=== PATIENT | female | born 1940 ===

== ENCOUNTER 2021-02-03 09:50 | Inpatient (IN) | payer MEDICARE, OTHER ==
[2021-02-03] VITALS (26 sets, daily range): BP systolic 76–192; BP diastolic 55–109
[~2021-02-03] VITALS: Ht 165 cm; Wt 82.4 kg
[2021-02-03] MEDS ORDERED: ANTACID SUSP 30 ML UDC (MYLANTA) PO PRN (13:00)
[2021-02-03] MEDS ORDERED: MELATONIN 3 MG TABLET PO PRN (13:00)
[2021-02-03] MEDS ORDERED: ACETAMINOPHEN 325 MG TABLET PO PRN (13:00)
[2021-02-03] MEDS ORDERED: polyethylene glycoL POWDER 17 GM (MIRALAX) PACK PO PRN (13:00)
[2021-02-03] MEDS ORDERED: ONDANSETRON 4 MG (ZOFRAN) ORAL DISSOLVE TAB PO PRN (13:00)
[2021-02-03] MEDS ORDERED: ONDANSETRON 4 MG/2 ML (SDV) Z0FRAN IV PRN (13:00)
--- NOTE | 2021-02-03 13:06 | Tele-ICU Consult ---
Progress Note 80 y/o female dmitte dwith 3rd degree heart block and CHF. Cardiology on consult for possible pacemaker Hemodynamically stable HR 42 BP 170/112 Focused Exam Height, Weight, BMI Height: '" Weight: lbs. oz. kg; 28.76 BMI Method: QAMAR LIU MD Feb 03, 2021 13:06
[2021-02-03] MEDS ORDERED: MIDAZOLAM 5 MG/5 ML (VERSED) VIAL ONE ×2 (13:13→19:31)
[2021-02-03] MEDS ORDERED: fentaNYL INJ 100 MCG/2 ML AMP ONE (13:13)
[2021-02-03] MEDS ORDERED: LIDOCAINE 1% INJ 20 ML 20 ML VIAL ONE ×2 (13:13→19:32)
[2021-02-03] MEDS ORDERED: HEParin (CATH LAB) 1,000 ML IV ONE (13:14)
[2021-02-03] MEDS ORDERED: NS IV 1000 ML 1,000 ML ONE (13:14)
[2021-02-03] MEDS ORDERED: NS (IVPB) 50 ML ONE (13:17)
[2021-02-03] MEDS ORDERED: ceFAZolin INJECTION 1,000 MG ONE (13:18)
[2021-02-03] MEDS ORDERED: NS IV 500 ML 500 ML ONE (13:20)
--- NOTE | 2021-02-03 13:24 | Consultation-Cardiology ---
HPI-Cardiology Cardiology Consultation Date of Consultation 02/03/21 Date of Admission Time Seen by Provider: 13:20 Indication: Bradycardia HPI 80-year-old lady with history of hypertension, diabetes mellitus. Has been following with Dr. Bryan as an outpatient. Woke up this morning feeling tired and short of breath, went to [place] emergency room and noted to have severe svetlana cardia with episodes of high-grade AV block. Arrangement to transfer her to a tertiary care center has failed due to the fact that [facility] all full. We were contacted and I accepted the patient. On arrival her heart rate is 40. She is in complete heart block. She denied any chest pain, no syncope was reported. No previous stenting or coronary artery disease is known. Home Medications & Allergies Allergies: Coded Allergies: Penicillins (Verified Allergy, Intermediate, rash, 02/03/21) Sulfa (Sulfonamide Antibiotics) (Verified Allergy, Intermediate, rash, 02/03/21) meperidine (Verified Allergy, Intermediate, vomit, 02/03/21) codeine (Verified Allergy, Mild, rash, 02/03/21) Home Medication List Reviewed: Yes [id number] Hx Patient Social History Marital Status: Employed/Student: retired Past Medical History Discussed below Family Medical History Family Medical Hx Noncontributory Review of Systems-General Review of Systems Constitutional: no symptoms reported, see HPI, malaise EENTM: see HPI, no symptoms reported Respiratory: see HPI; No cough; dyspnea on exertion; No hemoptysis, No orthopnea, No phlegm; short of breath; No stridor, No wheezing, No other Cardiovascular: see HPI; No chest pain; edema; No Hx of Intervention, No palpitations, No syncope, No vascular heart diseas, No other Gastrointestinal: no symptoms reported, see HPI Genitourinary: no symptoms reported, see HPI Musculoskeletal: no symptoms reported, see HPI Skin: no symptoms reported, see HPI Psychiatric/Neurological: No Symptoms Reported, See HPI Physical Exam Physical Exam Vital Signs Vital Signs - First Documented 02/03/21 12:48 Temp 36.3 Pulse 42 Resp 25 B/P (MAP) 177/75 (109) Pulse Ox 91 O2 Delivery Nasal Cannula O2 Flow Rate 3.00 Capillary Refill : Height, Weight, BMI Height: '" Weight: lbs. oz. kg; 28.76 BMI Method: General Appearance: No Apparent Distress, WD/WN Eyes: Bilateral Eye Normal Inspection, Bilateral Eye PERRL, Bilateral Eye EOMI HEENT: PERRL/EOMI, TMs Normal, Normal ENT Inspection, Pharynx Normal, Moist Mucous Membranes Neck: Full Range of Motion, Normal Inspection, Non Tender, Supple, Carotid Bruit Respiratory: Chest Non Tender, Normal Breath Sounds, No Accessory Muscle Use, No Respiratory Distress Cardiovascular: No Gallop, No JVD, Normal Peripheral Pulses, Bradycardia, Systolic Murmur Gastrointestinal: Normal Bowel Sounds, No Organomegaly, No Pulsatile Mass, Non Tender, Soft Back: Normal Inspection, No CVA Tenderness, No Vertebral Tenderness Extremity: Normal Capillary Refill, Normal Inspection, Normal Range of Motion, Non Tender, No Calf Tenderness, Pedal Edema (Mild pedal edema) Neurologic/Psychiatric: Alert, Oriented x3, No Motor/Sensory Deficits, Normal Mood/Affect Skin: Normal Color, Warm/Dry Lymphatic: No Adenopathy A/P-Cardiology Assessment/Plan Bradycardia, complete heart block with left bundle branch block, discussed with the patient the management plan recommended dual-chamber pacemaker implant. Procedure was explained in length to the patient all pros and cons were explained and patient agreed on the procedure. We will call the [employer] team Hypertension, has been maintained on losartan and amlodipine as an outpatient. Currently on hold, will restart medication after pacemaker Shortness of breath, fluid overload secondary probably to bradycardia. Will evaluate her response to the pacemaker Mild elevation in troponin, probably secondary to bradycardia, underlying coronary artery disease cannot be entirely excluded. Patient has multiple risk factors for coronary artery disease. Diabetes mellitus, followed and managed by primary care physician Hypothyroidism, maintained on thyroid replacement therapy. Allergy to penicillin and sulfa NIKOS PACE MD Feb 03, 2021 13:24
--- NOTE | 2021-02-03 13:25 | Conscious Sedation/ASA ---
Conscious Sedation Pre-Proced Time 13:25 ASA Score 3 For ASA 3 and 4: Consider anesthesia and medical clearance. Also, for patients with a history of failed moderate sedation consider anesthesia. Airway Lungs Heart ASA score ASA 1: a normal healthy patient ASA 2: a patient with a mild systemic disease (mid diabetes, controlled hypertension, obesity x ASA 3: a patient with a severe systemic disease that limits activity (angina, COPD, prior Myocardial infarction) ASA 4: a patient with an incapacitating disease that is a constant threat to life (CHF, renal failure) ASA 5: a moribund patient not expected to survive 24 hrs. (ruptured aneurysm) ASA 6: a declared brain- patient whose organs are being harvested. For emergent operations, add the letter E after the classification Mallampati Classification Grade 3 Sedation Plan Analgesia, Amnesia, Plan communicated to team members, Discussed options with patient/fam, Discussed risks with patient/fam The patient is an appropriate candidate to undergo the planned procedure, sedation, and anesthesia. The patient immediately re-assessed prior to indication. NIKOS PACE MD Feb 03, 2021 13:25
[2021-02-03] MEDS ORDERED: PATIENT MAY USE OWN MEDS, ALL PO SCH (15:15)
[2021-02-03] MEDS ORDERED: NS IV 1000 ML 1,000 ML IV SCH (15:15)
--- NOTE | 2021-02-03 15:17 | Permanent Pacemaker Implant ---
Dual Chamber Pacemaker Implant PROCEDURE PHYSICIAN: Nikos Kenyon DUAL CHAMBER PACEMAKER IMPLANTATION: DATE OF PROCEDURE: 02/03/21 INDICATION: Complete heart block PREOPERATIVE DIAGNOSIS: Bradycardia with complete heart block POSTOPERATIVE DIAGNOSIS: Bradycardia with complete heart block HISTORY: 80-year-old lady with history of hypertension, diabetes mellitus, had shortness of breath and bradycardia went to [place] emergency room, noted to be in complete heart block with severe bradycardia. Transferred to our facility for evaluation, on my evaluation her heart rate was 40. Dual-chamber permanent pacemaker was recommended. PROCEDURE PERFORMED: 1. Dual-chamber permanent pacemaker implantation. 2. Fluoroscopy. 3. Central venous access. ANESTHESIA: Local anesthesia, conscious sedation. COMPLICATIONS: None. ESTIMATED BLOOD LOSS:20 mL. SPECIMENS: None. ORAL ANTICOAGULATION: None. FLUOROSCOPY TIME: FLUOROSCOPY DOSE: CONTRAST DOSE: PROCEDURE DETAILS: The patient is a 80 female and after all of the patients questions were answered, the patient was brought to the EP Lab. The patient's left chest was prepped and draped in sterile fashion. A 2 inch horizontal incision was made 1 cm below the clavicle and dissection carried down to the pectoralis fascia. Using the modified Seldinger technique and under fluoroscopy guidance, the anterior aspect of the left axillary vein was accessed 2 times. The J wires were secured to the drapes with a mosquito clamp. A 7-Persian sheath was introduced over one of the J-wires. The RV lead was then inserted. The RV lead was directed across the tricuspid valve to the apical septal portion of the right ventricle. The position was checked in LINDSEY and ONEIL views. The screw was deployed and the lead connected to the plc programmer. Close sensing and pacing thresholds were obtained. Diaphragmatic pacing was ruled out. The lead was secured with 2-0 silk ties to the underlying muscle and fascia. Next, a 7-Persian sheath was introduced through the remaining J-wire. An atrial lead was then introduced and guided to the level of the right appendage. The screw was deployed and the lead was connected to the interrogator. Good sensing and pacing thresholds were obtained. Diaphragmatic pacing was ruled out. The leads were secured with 2-0 silk ties to the underlying muscle and fascia. The leads were connected to the device in a hermetic fashion. The device and leads were placed in the pocket. Aggressive irrigation with saline solution was done. I interrogated the device and noticed that the ventricular lead has poor capture. I remove the device from the pocket and released the ventricular lead and readjusted and positioned it and tested again and I had also poor capture after 4 attempts I was able to get a good capture and good sensitivity. I secured the lead and placed the device in the pocket and again I had a drop in the sensitivity and thresholds. I decided to secure the device and closed the pocket and give the patient some time to heal and reevaluate the tolerance to the pacemaker. Interrogation of the device revealed good integrity of all the leads and good connections. The wound was then closed using 2 layers. The first layer was interrupted 2-0 absorbable Vicryl suture. The last layer was a single subcuticular layer with 4- 0 Vicryl suture. Half inch Steri-Strips and a small dressing were then applied to the wound. The patient tolerated the procedure well and was returned to the recovery room in stable condition with stable vital signs. DEVICE INFORMATION: JOSÉ XT DR MRI Serial number [id number] RA LEAD: [id number] RV LEAD: [id number] PER-OPERATIVE DEVICE INTERROGATION: Good sensing and capture activity IMMEDIATE POSTOPERATIVE DEVICE INTERROGATION: Atrial lead: P wave 0.9 mV, impedance 513, threshold 0.25 V at 0.4 ms Ventricular lead: Impedance 703, R wave 6.8 mV, threshold 1.75 V at 0.4 ms PLAN: The patient transferred to the ICU. We will continue with two more doses of IV antibiotics. We will check a chest x-ray and interrogate the device in the morning. The patient will continue on oral antibiotics for 5 days. CONCLUSION: Successful implantation of dual chamber pacemaker with no complication Difficult to establish good position for the ventricular lead with good sensing and capture required multiple positions FINAL DIAGNOSIS: Complete heart block Bradycardia Hypertension Hyperlipidemia NIKOS KENYON MD Feb 03, 2021 15:17
[2021-02-03] MEDS ORDERED: METF-478 PO (16:04)
[2021-02-03] MEDS ORDERED: HYDR50TA6 PO (16:04)
[2021-02-03] MEDS ORDERED: AMLO-251 PO (16:04)
[2021-02-03] MEDS ORDERED: CALC-654 PO (16:04)
[2021-02-03] MEDS ORDERED: ASPI-999 PO (16:04)
[2021-02-03] MEDS ORDERED: LEVO100C4 PO (16:04)
[2021-02-03] MEDS ORDERED: LOSA100T57 PO (16:04)
[2021-02-03] MEDS ORDERED: BENZ100C18 PO (16:04)
--- NOTE | 2021-02-03 16:30 | Diagnostic Imaging Report ---
INDICATION: Pacemaker placement. EXAMINATION: Chest, 02/03/2021. FINDINGS: Single view chest. There is a left-sided pacemaker unremarkable in appearance. There is no pneumothorax. There are increased interstitial markings throughout the mid and upper lungs, likely due to edema. There is pulmonary vascular congestion with cardiomegaly noted. No effusions. No pneumothorax. IMPRESSION: Pulmonary edema with no evidence for pneumothorax. Dictated by: Dictated on workstation # [id number]
[2021-02-03] MEDS: inSUlin ASPART (NovoLOG) 1 UNIT/0.01 ML (CHARGE PER UNIT) SC SCH (17:01)
[2021-02-03] MEDS ORDERED: RT-ALBUTEROL/IPRATROPIUM 3 ML (DUONEB) VIAL ONE (17:27)
[2021-02-03] MEDS ORDERED: FUROSEMIDE 40 MG/4 ML INJ (LASIX) IVP ONE ×2 (17:30→17:45)
[2021-02-03] MEDS ORDERED: FUROSEMIDE 40 MG/4 ML INJ (LASIX) ONE (17:30)
[2021-02-03] MEDS ORDERED: RT-ALBUTEROL/IPRATROPIUM 3 ML (DUONEB) VIAL INH ONE (17:30)
[2021-02-03] MEDS: LOSARTAN 50 MG (COZAAR) TAB PO SCH (17:50)
[2021-02-03] MEDS ORDERED: RT-ALBUTEROL SULF 2.5 MG/3 ML PRE-MIX VIAL INH PRN (18:45)
[2021-02-03] MEDS ORDERED: morphine INJ 4 MG/ML 1 ML (VIAL/SYRINGE) ONE (19:32)
--- NOTE | 2021-02-03 20:07 | Cardiac Procedure Note ---
Cardiology Procedures Date of Procedure 02/03/21 Pericardiocentesis: 80-year-old lady had a dual-chamber pacemaker implanted earlier today, she became hypotensive and dyspneic. Emergency 2D echo showed moderate sized marilee cardial effusion. I decided to proceed with pericardiocentesis. After explaining the procedure to the patient and her , under emergency condition, ultrasound was done and marked the area of the largest pericardial effusion, local anesthesia applied then 1 mg of Versed and 2 mg of morphine were given then I was able to advance a Cook needle to the pericardial space and removed 100 mL of fluid. It did not clot, appeared to be pericardial fluid. Pigtail catheter was advanced and secured in place. The catheter was attached to a collection bag. Repeat ultrasound showed improvement in the fluid, she still have small to moderate size effusion, blood pressure has improved. Conclusion Successful pericardiocentesis procedure and placement of pigtail catheter in the pericardial space with continuous drainage NIKOS PACE MD Feb 03, 2021 20:07
[2021-02-03 21:31] LABS: BASOPHILS % (AUTO) 0 % (0-10); EOSINOPHILS % (AUTO) 0 % (0-10); HEMATOCRIT 39 % (35-52); HEMOGLOBIN 12.2 g/dL (11.5-16.0); LYMPHOCYTES # (AUTO) 0.8 10^3/uL (1.0-4.0); LYMPHOCYTES % (AUTO) 5 % (12-44); MEAN CORPUSCULAR HEMOGLOBIN 32 pg (25-34); MEAN CORPUSCULAR HGB CONC 31 g/dL (32-36); MEAN CORPUSCULAR VOLUME 101 fL (80-99); MEAN PLATELET VOLUME 10.8 fL (9.0-12.2); MONOCYTES # (AUTO) 0.6 10^3/uL (0.0-1.0); MONOCYTES % (AUTO) 4 % (0-12); NEUTROPHILS # (AUTO) 16.4 10^3/uL (1.8-7.8); NEUTROPHILS % (AUTO) 90 % (42-75); PLATELET COUNT 256 10^3/uL (130-400); WHITE BLOOD COUNT 18.2 10^3/uL (4.3-11.0)
[2021-02-03 21:50] LABS: INR 1.3 (0.8-1.4); PROTHROMBIN TIME PATIENT 16.7 SEC (12.2-14.7)
[2021-02-03 22:07] LABS: POTASSIUM 4.6 MMOL/L (3.6-5.0)
[2021-02-03 22:08] LABS: CALCIUM 8.2 MG/DL (8.5-10.1)
[2021-02-03 22:12] LABS: CREATININE SERUM 1.48 MG/DL (0.60-1.30)
[2021-02-03] MEDS: ceFAZolin INJECTION 1,000 MG in NS (IVPB) 50 ML IV SCH (22:20)
[2021-02-03 22:25] LABS: BAND NEUTROPHILS 1 %; LYMPHOCYTES % (MANUAL) 8 %; MONOCYTES % (MANUAL) 4 %; NEUTROPHILS % (MANUAL) 87 %; RBC MORPH NORMAL
[2021-02-03] MEDS: RT-ALBUTEROL SULF 2.5 MG/3 ML PRE-MIX VIAL INH SCH (22:29)
[2021-02-04] VITALS (49 sets, daily range): BP systolic 92–161; BP diastolic 53–124
[2021-02-04] MEDS: inSUlin ASPART (NovoLOG) 1 UNIT/0.01 ML (CHARGE PER UNIT) SC SCH ×4 (00:18→18:16)
[2021-02-04 04:23] LABS: BASOPHILS % (AUTO) 0 % (0-10); EOSINOPHILS % (AUTO) 0 % (0-10); HEMATOCRIT 35 % (35-52); HEMOGLOBIN 11.5 g/dL (11.5-16.0); LYMPHOCYTES # (AUTO) 0.9 10^3/uL (1.0-4.0); LYMPHOCYTES % (AUTO) 4 % (12-44); MEAN CORPUSCULAR HEMOGLOBIN 31 pg (25-34); MEAN CORPUSCULAR HGB CONC 33 g/dL (32-36); MEAN CORPUSCULAR VOLUME 97 fL (80-99); MEAN PLATELET VOLUME 10.8 fL (9.0-12.2); MONOCYTES # (AUTO) 1.4 10^3/uL (0.0-1.0); MONOCYTES % (AUTO) 6 % (0-12); NEUTROPHILS # (AUTO) 19.5 10^3/uL (1.8-7.8); NEUTROPHILS % (AUTO) 89 % (42-75); PLATELET COUNT 236 10^3/uL (130-400); WHITE BLOOD COUNT 21.9 10^3/uL (4.3-11.0)
[2021-02-04 04:41] LABS: ALBUMIN 3.5 GM/DL (3.2-4.5)
[2021-02-04 04:42] LABS: POTASSIUM 4.2 MMOL/L (3.6-5.0)
[2021-02-04 04:43] LABS: CALCIUM 8.2 MG/DL (8.5-10.1)
[2021-02-04 04:44] LABS: TOTAL PROTEIN 5.8 GM/DL (6.4-8.2)
[2021-02-04 04:46] LABS: BILIRUBIN,TOTAL 0.6 MG/DL (0.1-1.0)
[2021-02-04 04:47] LABS: PHOSPHORUS 4.8 MG/DL (2.3-4.7)
[2021-02-04 04:48] LABS: CREATININE SERUM 1.27 MG/DL (0.60-1.30)
[2021-02-04 04:51] LABS: MAGNESIUM 2.1 MG/DL (1.6-2.4)
[2021-02-04] MEDS ORDERED: FUROSEMIDE 40 MG/4 ML INJ (LASIX) ONE (05:07)
--- NOTE | 2021-02-04 05:11 | Tele-ICU Progress Note ---
Subjective Date Seen by a Provider: Feb 04, 2021 Time Seen by a Provider: 05:10 Sepsis Event Evaluation Height, Weight, BMI Height: '" Weight: lbs. oz. kg; 28.76 BMI Method: Exam Exam Patient acknowledged, consented, and participated in this virtual visit which was conducted using real time audio/video Vital Signs Date Time Temp Pulse Resp B/P (MAP) Pulse Ox O2 Delivery O2 Flow Rate FiO2 02/04/21 03:54 Nasal Cannula 3.00 02/04/21 01:00 63 02/04/21 00:00 Nasal Cannula 3.00 02/04/21 00:00 36.4 02/03/21 23:30 61 18 115/65 (82) 92 Nasal Cannula 3.00 02/03/21 23:15 60 15 133/66 (102) 93 Nasal Cannula 3.00 02/03/21 23:00 60 19 109/68 (81) 94 Nasal Cannula 3.00 02/03/21 22:49 64 20 127/56 (88) 94 Nasal Cannula 3.00 02/03/21 22:47 60 18 76/73 (74) 93 Nasal Cannula 3.00 02/03/21 22:45 61 21 79/55 (59) 94 Nasal Cannula 3.00 02/03/21 22:30 63 19 110/79 (85) 93 Nasal Cannula 3.00 02/03/21 22:29 97 High Flow N/C 15.00 02/03/21 22:20 Nasal Cannula 3.00 02/03/21 22:15 61 18 119/57 (73) 96 High Flow N/C 6.00 02/03/21 22:00 61 17 117/58 (89) 97 High Flow N/C 6.00 02/03/21 21:45 65 10 100/66 (76) 99 High Flow N/C 6.00 02/03/21 21:30 71 17 114/55 (86) 95 High Flow N/C 6.00 02/03/21 21:21 High Flow N/C 6.00 02/03/21 21:15 68 17 132/67 (85) 96 NIV Bilevel 30.00 02/03/21 21:00 66 13 121/67 (83) 96 NIV Bilevel 30.00 02/03/21 20:55 NIV Bilevel 30.00 02/03/21 20:20 NIV Bilevel 70.00 02/03/21 20:00 35.8 02/03/21 20:00 NIV Bilevel 40 02/03/21 20:00 79 22 120/64 (82) 98 NIV Bilevel 02/03/21 19:45 NIV Bilevel 100.00 02/03/21 19:33 81 02/03/21 19:00 86 12 99/68 (78) 94 NIV Bilevel 02/03/21 19:00 NIV Bilevel 60.00 02/03/21 18:50 NIV Bilevel 02/03/21 18:42 91 High Flow N/C 15.00 02/03/21 18:29 91 High Flow N/C 15.00 02/03/21 18:15 80 16 101/80 (87) 94 High Flow N/C 11.00 02/03/21 18:11 36.3 42 91 02/03/21 18:07 94 High Flow N/C 11.00 02/03/21 17:30 High Flow N/C 15.00 02/03/21 17:15 73 22 192/109 (136) 87 High Flow N/C 15.00 02/03/21 17:00 59 27 163/95 (117) 88 Nasal Cannula 6.00 02/03/21 16:30 60 21 173/84 (101) 91 Nasal Cannula 6.00 02/03/21 16:12 36.8 02/03/21 16:00 60 13 158/87 (123) 92 Nasal Cannula 6.00 02/03/21 16:00 Nasal Cannula 6.00 02/03/21 15:45 60 19 154/84 (107) 94 Nasal Cannula 6.00 02/03/21 15:30 60 19 154/84 (107) 94 Nasal Cannula 6.00 02/03/21 13:24 45 02/03/21 13:00 73 18 142/92 (109) 93 Nasal Cannula 6.00 02/03/21 13:00 Nasal Cannula 3.00 02/03/21 12:59 93 Nasal Cannula 6.00 02/03/21 12:48 36.3 42 25 177/75 (109) 91 Nasal Cannula 3.00 I & O 02/04/21 07:00 Intake Total 200 ml Output Total 1155 ml Balance -955 ml Height & Weight Height: '" Weight: lbs. oz. kg; 28.76 BMI Method: General Appearance: No Apparent Distress, WD/WN HEENT: PERRL/EOMI, TMs Normal, Normal ENT Inspection, Pharynx Normal, Moist Mucous Membranes Neck: Full Range of Motion, Normal Inspection, Non Tender, Supple, Carotid Bruit Respiratory: Chest Non Tender, Normal Breath Sounds, No Accessory Muscle Use, No Respiratory Distress Cardiovascular: No Gallop, No JVD, Normal Peripheral Pulses, Bradycardia, Systolic Murmur Extremity: Normal Capillary Refill, Normal Inspection, Normal Range of Motion, Non Tender, No Calf Tenderness, Pedal Edema (Mild pedal edema) Neurologic/Psychiatric: Alert, Oriented x3, No Motor/Sensory Deficits, Normal Mood/Affect Skin: Normal Color, Warm/Dry Lymphatic: No Adenopathy Results Lab Laboratory Tests 02/03/21 21:17 02/04/21 04:10 Assessment/Plan Assessment/Plan dw bed side rn: pericardiocentesis tube is clogged; bed side rn spoke with chemical etch operator who recomended lasix 20mg iv; we will check a cxray a swell; labs were reviewed. JORGE PEARCE MD Feb 04, 2021 05:11
[2021-02-04] MEDS ORDERED: FUROSEMIDE 40 MG/4 ML INJ (LASIX) IVP ONE (05:15)
--- NOTE | 2021-02-04 05:31 | Diagnostic Imaging Report ---
Indication: Dyspnea, follow-up pulmonary edema. Comparison: 02/03/2021. Discussion: Single portable upright view of the chest was obtained. Left-sided pacemaker stable. Borderline cardiomegaly is stable. Central venous congestion is again noted. Mild pulmonary edema slightly decreased. Small left effusion is noted. No pneumothorax or osseous abnormality. Impression: 1. Cardiomegaly with mild edema which is slightly decreased. Small left effusion. Dictated by: Dictated on workstation # [id number]
[2021-02-04] MEDS: MAGNESIUM 1 GM/100 ML IVPB 100 ML IV SCH (06:06)
[2021-02-04] MEDS: POTASSIUM CL 10MEQ/50ML IVPB 50 ML IV SCH (06:06)
[2021-02-04] MEDS: KCL 20 MEQ TAB (K-DUR) PO SCH (06:07)
--- NOTE | 2021-02-04 06:08 | Diagnostic Imaging Report ---
PROCEDURE: CT chest without contrast. TECHNIQUE: Multiple contiguous axial images were obtained through the chest without the use of intravenous contrast. Auto Exposure Controls were utilized during the CT exam to meet ALARA standards for radiation dose reduction. Indication: Dyspnea. Comparison: Chest x-ray same day. Discussion: Left-sided pacemaker is present. Small amount of soft tissue gas noted in this region consistent with recent placement. The thoracic aorta is normal in caliber and contains severe atherosclerotic plaque. Cholelithiasis is present. The upper abdomen is otherwise unremarkable. Mild cardiomegaly. Small to moderate layering bilateral pleural effusions. Small pericardial effusion. Compressive atelectasis noted within the lung bases. No pneumothorax. No adenopathy. No acute osseous abnormality identified. Impression: 1. Bilateral pleural effusions with associated atelectasis. Small pericardial effusion. Dictated by: Dictated on workstation # [id number]
[2021-02-04] MEDS: ceFAZolin INJECTION 1,000 MG in NS (IVPB) 50 ML IV SCH ×2 (06:29→13:59)
--- NOTE | 2021-02-04 07:30 | Cardiology Progress Note ---
Subjective Date Seen by Provider: Feb 04, 2021 Time Seen by Provider: 07:26 Subjective/Events-last exam Patient is laying down in bed, feeling better today. Was having some shortness of breath earlier this morning responded to IV Lasix. Review of Systems General: No Chills, No Night Sweats, No Fatigue, No Malaise, No Appetite, No Other HEENT: No Head Aches, No Visual Changes, No Eye Pain, No Ear Pain, No Dysphasia, No Sinus Congestion, No Post Nasal Drip, No Sore Throat, No Other Pulmonary: No Dyspnea, No Cough, No Pleuritic Chest Pain, No Other Cardiovascular: No: Chest Pain, Palpitations, Orthopnea, Paroxysmal Noc. Dyspnea, Edema, Lt Headedness, Other Objective-Cardiology Exam Last Set of Vital Signs Vital Signs 02/03/21 02/04/21 02/04/21 02/04/21 20:00 04:00 07:30 07:34 Temp 36.5 Pulse 66 Resp 18 B/P (MAP) 159/78 (105) Pulse Ox 95 O2 Delivery High Flow N/C O2 Flow Rate 2.00 FiO2 40 I&O Intake and Output 02/04/21 00:00 Intake Total 150 ml Output Total 955 ml Balance -805 ml Intake Oral 150 ml Output Urine Total 625 ml Drainage Total 330 ml General: Alert, Oriented X3, Cooperative HEENT: Atraumatic, PERRLA Neck: Supple, No JVD, No Thyromegaly Lungs: Clear to Auscultation, Normal Air Movement Heart: Regular Rate, Normal S1, Normal S2, No Murmurs, Rubs Abdomen: Normal Bowel Sounds, Soft, No Tenderness, No Hepatosplenomegaly, No Masses Extremities: No Clubbing, No Cyanosis, No Edema, Normal Pulses, No Tenderness/Swelling Skin: No Rashes, No Breakdown, No Significant Lesion Neuro: Normal Gait, Normal Speech, Strength at 5/5 X4 Ext, Normal Tone, Sensation Intact Psych/Mental Status: Mental Status NL, Mood NL Results Lab Laboratory Tests 02/03/21 21:17 02/04/21 04:10 A/P-Cardiology Admission Diagnosis Bradycardia Complete heart block Cardiac pacemaker Congestive heart failure, acute left ventricular systolic dysfunction, ischemic cardiomyopathy Assessment/Plan Bradycardia, complete heart block with left bundle branch block, status post dual chamber pacemaker implant, difficult procedure, difficulty achieving good positioning of the ventricular leads required multiple attempts and resulted in pericardial effusion and tamponade. Currently better. Continue to monitor closely Pericardial tamponade, secondary to pacemaker placement, status post pericardiocentesis and placement of pigtail in the pericardial space. Drainage about 350 mL, drainage has stopped at [address] scan of the chest showed small residual pericardial effusion, bilateral pleural effusion and pulmonary edema. She was given Lasix and had good response. Feeling better, laying down comfortably in bed. Continue to monitor closely and I will repeat 2D echo later today. Hypertension, restart losartan and monitor blood pressure Leukocytosis, probably reactive, currently receiving Ancef. I will continue with Ancef every 8 hours and monitor her closely. Planning to repeat CBC in the morning Congestive heart failure, acute left ventricular systolic dysfunction ejection fraction 35%, unknown etiology, probably ischemic in nature. Had mild elevation in troponin, could be secondary to pericardial tamponade and the multiple attempt with the ventricular lead. Underlying coronary artery disease cannot be excluded, I discussed with the patient and her the need for ischemic work-up in the near future. At this point she cannot tolerate aggressive anticoagulation due to the pericardial effusion. We will continue monitoring closely Shortness of breath, congestive heart failure, acute left ventricular systolic dysfunction, probably ischemic in nature. Diabetes mellitus, followed and managed by primary care physician Hypothyroidism, maintained on thyroid replacement therapy. Allergy to penicillin and sulfa NIKOS PACE MD Feb 04, 2021 07:30
[2021-02-04] MEDS: RT-ALBUTEROL SULF 2.5 MG/3 ML PRE-MIX VIAL INH SCH ×2 (07:34→22:19)
[2021-02-04] MEDS: ASPIRIN 81 MG CHEW (CHILDREN'S ASA) PO SCH (08:38)
[2021-02-04] MEDS: LOSARTAN 50 MG (COZAAR) TAB PO SCH (08:38)
[2021-02-04] MEDS ORDERED: FUROSEMIDE 40 MG/4 ML INJ (LASIX) IVP SCH (09:00)
--- NOTE | 2021-02-04 09:06 | History & Physical-Hospitalist ---
History of Present Illness HPI/Chief Complaint Gi Roberts is an 80 year old female who presented as a transfer from [facility] after presenting with shortness of breath. She denied chest pain. She was not having palpitations. She denies fevers and chills. She denies cough. She denies abdominal pain, nausea, vomiting, and diarrhea. She is fully vaccinated against COVID. She also received her flu vaccine. She has no history of CAD or heart failure. Source: patient Exam Limitations: no limitations Date Seen 02/03/21 Time Seen by a Provider: 12:45 Attending Physician Juanita Nice MD PCP No,Local Physician Referring Physician Date of Admission Feb 03, 2021 at 12:35 Home Medications & Allergies Home Medications Reviewed patient Home Medication Reconciliation performed by pharmacy medication reconciliations property maintenance technician and/or nursing. Patients Allergies have been reviewed. Allergies Allergies Coded Allergies Penicillins (Verified Allergy, Intermediate, rash, 02/03/21) Sulfa (Sulfonamide Antibiotics) (Verified Allergy, Intermediate, rash, 02/03/21) meperidine (Verified Allergy, Intermediate, vomit, 02/03/21) codeine (Verified Allergy, Mild, rash, 02/03/21) metoprolol (Verified Allergy, Unknown, dizziness, 02/03/21) morphine (Unverified Adverse Reaction, Mild, NAUSEA, 02/03/21) PER PATIENT REPORT Past Qasjtao-Fruarr-Fgyjej Hx Patient Social History Marrital Status: Employed/Student: retired Family Medical History No Pertinent Family Hx Review of Systems Constitutional: no symptoms reported EENTM: no symptoms reported Respiratory: short of breath Cardiovascular: no symptoms reported Gastrointestinal: no symptoms reported Genitourinary: no symptoms reported Musculoskeletal: no symptoms reported Skin: no symptoms reported Psychiatric/Neurological: No Symptoms Reported Physical Exam Physical Exam Vital Signs Vital Signs - First Documented 02/03/21 02/03/21 12:48 20:00 Temp 36.3 Pulse 42 Resp 25 B/P (MAP) 177/75 (109) Pulse Ox 91 O2 Delivery Nasal Cannula O2 Flow Rate 3.00 FiO2 40 Capillary Refill : Height, Weight, BMI Height: '" Weight: lbs. oz. kg; 28.76 BMI Method: General Appearance: No Apparent Distress, WD/WN HEENT: PERRL/EOMI, Pharynx Normal Neck: Normal Inspection, Supple Respiratory: Lungs Clear, Normal Breath Sounds, No Respiratory Distress Cardiovascular: No Edema, No Murmur, Bradycardia Gastrointestinal: Normal Bowel Sounds, Non Tender, Soft Extremity: Normal Inspection, Non Tender, No Pedal Edema Skin: Normal Color, Warm/Dry Results Results/Procedures Labs Laboratory Tests 02/03/21 21:17 02/04/21 04:10 Patient resulted labs reviewed. Imaging: Reviewed Imaging Report Assessment/Plan Admission Diagnosis New onset heart failure Admission Status: Inpatient Order (span 2 midnights) Reason for Inpatient Admission: Bradycardia Assessment and Plan New onset heart failure Complete heart block Elevated troponin s/p Atropine Receiived Lasix prior to transfer Monitor I/O Echo ordered Cardiology consulted NPO for possible procedure HTN Monitor T2DM Sliding scale insulin DVT prophylaxis: held for possible procedure Diagnosis/Problems Diagnosis/Problems (1) New onset of congestive heart failure Status: Acute (2) Complete heart block Status: Acute (3) Elevated troponin Status: Acute (4) HTN (hypertension) Status: Chronic (5) T2DM (type 2 diabetes mellitus) Status: Chronic (6) Obesity Status: Chronic JUANITA NICE MD Feb 04, 2021 09:06
--- NOTE | 2021-02-04 11:10 | Tele-ICU Progress Note ---
Subjective Date Seen by a Provider: Feb 04, 2021 Time Seen by a Provider: 11:09 Sepsis Event Evaluation Height, Weight, BMI Height: '" Weight: lbs. oz. kg; 28.76 BMI Method: Exam Exam Patient acknowledged, consented, and participated in this virtual visit which was conducted using real time audio/video Vital Signs Date Time Temp Pulse Resp B/P (MAP) Pulse Ox O2 Delivery O2 Flow Rate FiO2 02/04/21 10:37 93 Room Air 02/04/21 10:00 70 21 92/84 (89) 93 Nasal Cannula 2.00 02/04/21 09:45 69 14 98/65 (73) 90 02/04/21 09:30 70 14 128/70 (79) 95 02/04/21 09:15 63 15 154/65 (91) 95 02/04/21 09:00 66 17 138/67 (90) 95 Nasal Cannula 2.00 02/04/21 08:07 Nasal Cannula 2.00 02/04/21 08:00 37.2 02/04/21 07:45 Nasal Cannula 3.00 02/04/21 07:34 95 High Flow N/C 2.00 02/04/21 07:30 66 18 159/78 (105) 95 02/04/21 07:15 64 18 130/62 (84) 95 02/04/21 07:00 62 02/04/21 07:00 64 23 108/68 (84) 95 Nasal Cannula 3.00 02/04/21 06:45 66 22 109/67 (72) 97 02/04/21 06:30 69 20 149/64 (81) 95 02/04/21 06:15 68 12 119/82 (110) 95 Nasal Cannula 3.00 02/04/21 06:00 63 18 125/68 (76) 93 Nasal Cannula 3.00 02/04/21 05:30 Nasal Cannula 3.00 02/04/21 05:30 64 19 113/99 (104) 98 Nasal Cannula 3.00 02/04/21 05:23 62 17 96/78 (87) 96 Nasal Cannula 3.00 02/04/21 05:15 68 14 97 Nasal Cannula 3.00 02/04/21 05:00 67 17 111/86 (89) 97 Nasal Cannula 3.00 02/04/21 04:45 62 16 117/58 (75) 95 Nasal Cannula 3.00 02/04/21 04:30 60 20 146/76 (100) 96 Nasal Cannula 3.00 02/04/21 04:20 66 27 144/69 (83) 97 Nasal Cannula 3.00 02/04/21 04:15 64 22 97 Nasal Cannula 3.00 02/04/21 04:00 61 21 142/64 (90) 97 Nasal Cannula 3.00 02/04/21 04:00 36.5 02/04/21 03:54 Nasal Cannula 3.00 02/04/21 03:45 64 23 98 Nasal Cannula 3.00 02/04/21 03:15 65 17 142/66 (95) 98 Nasal Cannula 3.00 02/04/21 02:45 62 18 114/53 (80) 98 Nasal Cannula 3.00 02/04/21 02:31 134/53 (95) Nasal Cannula 3.00 02/04/21 02:30 75 19 98 Nasal Cannula 3.00 02/04/21 02:15 66 26 132/53 (79) 97 Nasal Cannula 3.00 02/04/21 02:00 61 14 145/71 (99) 95 Nasal Cannula 3.00 02/04/21 01:45 60 15 143/61 (91) 96 Nasal Cannula 3.00 02/04/21 01:30 137/72 (95) Nasal Cannula 3.00 02/04/21 01:15 60 19 128/70 (92) 97 Nasal Cannula 3.00 02/04/21 01:03 60 19 143/63 (78) 96 Nasal Cannula 3.00 02/04/21 01:00 63 02/04/21 01:00 62 17 161/124 (141) 96 Nasal Cannula 3.00 02/04/21 00:45 60 21 120/65 (70) 95 Nasal Cannula 3.00 02/04/21 00:30 60 12 144/69 (96) 95 Nasal Cannula 3.00 02/04/21 00:20 61 17 134/63 (76) 94 Nasal Cannula 3.00 02/04/21 00:15 65 15 121/102 (112) 94 Nasal Cannula 3.00 02/04/21 00:00 Nasal Cannula 3.00 02/04/21 00:00 36.4 02/04/21 00:00 114/82 (86) Nasal Cannula 3.00 02/03/21 23:45 59 15 127/72 (94) 96 Nasal Cannula 3.00 02/03/21 23:30 61 18 115/65 (82) 92 Nasal Cannula 3.00 02/03/21 23:15 60 15 133/66 (102) 93 Nasal Cannula 3.00 02/03/21 23:00 60 19 109/68 (81) 94 Nasal Cannula 3.00 02/03/21 22:49 64 20 127/56 (88) 94 Nasal Cannula 3.00 02/03/21 22:47 60 18 76/73 (74) 93 Nasal Cannula 3.00 02/03/21 22:45 61 21 79/55 (59) 94 Nasal Cannula 3.00 02/03/21 22:30 63 19 110/79 (85) 93 Nasal Cannula 3.00 02/03/21 22:29 97 High Flow N/C 15.00 02/03/21 22:20 Nasal Cannula 3.00 02/03/21 22:15 61 18 119/57 (73) 96 High Flow N/C 6.00 02/03/21 22:00 61 17 117/58 (89) 97 High Flow N/C 6.00 02/03/21 21:45 65 10 100/66 (76) 99 High Flow N/C 6.00 02/03/21 21:30 71 17 114/55 (86) 95 High Flow N/C 6.00 02/03/21 21:21 High Flow N/C 6.00 02/03/21 21:15 68 17 132/67 (85) 96 NIV Bilevel 30.00 02/03/21 21:00 66 13 121/67 (83) 96 NIV Bilevel 30.00 02/03/21 20:55 NIV Bilevel 30.00 02/03/21 20:20 NIV Bilevel 70.00 02/03/21 20:00 35.8 02/03/21 20:00 NIV Bilevel 40 02/03/21 20:00 79 22 120/64 (82) 98 NIV Bilevel 02/03/21 19:45 NIV Bilevel 100.00 02/03/21 19:33 81 02/03/21 19:00 86 12 99/68 (78) 94 NIV Bilevel 02/03/21 19:00 NIV Bilevel 60.00 02/03/21 18:50 NIV Bilevel 02/03/21 18:42 91 High Flow N/C 15.00 02/03/21 18:29 91 High Flow N/C 15.00 02/03/21 18:15 80 16 101/80 (87) 94 High Flow N/C 11.00 02/03/21 18:11 36.3 42 91 02/03/21 18:07 94 High Flow N/C 11.00 02/03/21 17:30 High Flow N/C 15.00 02/03/21 17:15 73 22 192/109 (136) 87 High Flow N/C 15.00 02/03/21 17:00 59 27 163/95 (117) 88 Nasal Cannula 6.00 02/03/21 16:30 60 21 173/84 (101) 91 Nasal Cannula 6.00 02/03/21 16:12 36.8 02/03/21 16:00 60 13 158/87 (123) 92 Nasal Cannula 6.00 02/03/21 16:00 Nasal Cannula 6.00 02/03/21 15:45 60 19 154/84 (107) 94 Nasal Cannula 6.00 02/03/21 15:30 60 19 154/84 (107) 94 Nasal Cannula 6.00 02/03/21 13:24 45 02/03/21 13:00 73 18 142/92 (109) 93 Nasal Cannula 6.00 02/03/21 13:00 Nasal Cannula 3.00 02/03/21 12:59 93 Nasal Cannula 6.00 02/03/21 12:48 36.3 42 25 177/75 (109) 91 Nasal Cannula 3.00 I & O 02/04/21 07:00 Intake Total 250 ml Output Total 1630 ml Balance -1380 ml Height & Weight Height: '" Weight: lbs. oz. kg; 28.76 BMI Method: General Appearance: No Apparent Distress, WD/WN HEENT: PERRL/EOMI, Pharynx Normal Neck: Normal Inspection, Supple Respiratory: Lungs Clear, Normal Breath Sounds, No Respiratory Distress Cardiovascular: No Edema, No Murmur, Bradycardia Extremity: Normal Inspection, Non Tender, No Pedal Edema Neurologic/Psychiatric: Alert, Oriented x3, No Motor/Sensory Deficits, Normal Mood/Affect Skin: Normal Color, Warm/Dry Lymphatic: No Adenopathy Results Lab Laboratory Tests 02/03/21 21:17 02/04/21 04:10 Assessment/Plan Assessment/Plan (Tele-ICU Physician , Progress Note ) Available chart/ vitals / labs / Images reviewed Video assessment done using teleICU camera, rest of exam as per RN Discussed with RN , EXAM PER RN Events overnight : pericardiocentesis tube is clogged FEBRILE FiO2 - 2 l I/O = neg 800 Drips: Pressors: , hemodynamically stable Consultants: gisselle Hospital course: 02/03 - transfer from [facility]- heart block , pcemaker placement , tamponade -> drainage placed 02/04 - pericardiocentesis tube is clogged- removed A/P Bradycardia, complete heart block - s/p dual chamber pacemaker implant 02/03 Pericardial effusion and tamponade due to above - pericardiocentesis and drainage placement 02/04 - >- CT scan of the chest showed small residual pericardial effusion -ECHO pending - REMOVED tube 02/04 - as per cards CHF with bilateral pleural effusion and pulmonary edema. -EF 35 % - Lasix - FEVER + Leukocytosis - probably reactive, currently receiving Ancef - follow closely Elv LFT - suspected hepatic conjestion with CHF - to follow DM - ISS Lines : (Central Line Necessity Reviewed) Enriquez: OG: Nutrition: Analgesia: Anxiety/ delirium VTE Prophylaxis: scd Stress Ulcer Prophylaxis: po intake Plans in collaboration with bedside consultants and IM MDs. Discussed with RN to reach out if any questions or concerns A total of 31 minutes of critical care time was devoted to this patient today, required to treat and/or prevent further deterioration of critical care condition ( as above) . RACH AQUINO MD Feb 04, 2021 11:10
--- NOTE | 2021-02-04 11:26 | Progress Note - Hospitalist ---
Subjective HPI/CC On Admission Date Seen by Provider: Feb 04, 2021 Time Seen by Provider: 10:00 Gi Roberts is an 80 year old female who presented as a transfer from [facility] after presenting with shortness of breath. She denied chest pain. She was not having palpitations. She denies fevers and chills. She denies cough. She denies abdominal pain, nausea, vomiting, and diarrhea. She is fully vaccinated against COVID. She also received her flu vaccine. She has no history of CAD or heart failure. Subjective/Events-last exam She is feeling "100% better" today. She is not short of breath. She is not havi ng palpitations. She denies chest pain. Her family is at the bedside and all questions and concerns were addressed. Objective Exam Vital Signs Vital Signs Date Time Temp Pulse Resp B/P (MAP) Pulse Ox O2 Delivery O2 Flow Rate FiO2 02/04/21 11:00 60 18 116/75 (87) 92 Room Air 02/04/21 10:30 2.00 02/04/21 08:00 37.2 02/03/21 20:00 40 Capillary Refill : General Appearance: No Apparent Distress, Obese Respiratory: Lungs Clear, Normal Breath Sounds, No Respiratory Distress Cardiovascular: Regular Rate, Rhythm, No Edema, No Murmur Gastrointestinal: Normal Bowel Sounds, Non Tender, Soft Extremity: Normal Inspection, Non Tender, No Pedal Edema Neurologic/Psychiatric: Alert, Oriented x3, No Motor/Sensory Deficits, Normal Mood/Affect Skin: Normal Color, Warm/Dry Results/Procedures Lab Laboratory Tests 02/03/21 21:17 02/04/21 04:10 Patient resulted labs reviewed. Imaging: Reviewed Imaging Report Assessment/Plan Assessment and Plan Assess & Plan/Chief Complaint New onset heart failure Complete heart block Pericardial effusion with cardiac tamponade Elevated troponin Acute heart failure with reduced ejection fraction s/p pacemaker placement 02/03 Developed pericardial effusion and tamponade post-procedure s/p pericardiocentesis and drain placement, now removed Repeat echo pending Cardiology following TeleICU following HTN Continue current meds T2DM Sliding scale insulin DVT prophylaxis: SCDs Diagnosis/Problems Diagnosis/Problems (1) New onset of congestive heart failure Status: Acute (2) Complete heart block Status: Acute (3) Elevated troponin Status: Acute (4) HTN (hypertension) Status: Chronic (5) T2DM (type 2 diabetes mellitus) Status: Chronic (6) Obesity Status: Chronic (7) Pericardial effusion with cardiac tamponade Status: Acute HERMINIO NICE MD Feb 04, 2021 11:26
[2021-02-04] MEDS ORDERED: ceFAZolin 2 GM IV Premixed 50 ML IV SCH (15:15)
[2021-02-04] MEDS: ceFAZolin 2 GM IV Premixed 50 ML IV SCH (22:50)
[2021-02-05] VITALS (37 sets, daily range): BP systolic 108–164; BP diastolic 61–99
[2021-02-05] MEDS: inSUlin ASPART (NovoLOG) 1 UNIT/0.01 ML (CHARGE PER UNIT) SC SCH ×4 (02:03→18:25)
[2021-02-05 04:48] LABS: BASOPHILS % (AUTO) 0 % (0-10); EOSINOPHILS # (AUTO) 0.1 10^3/uL (0.0-0.3); EOSINOPHILS % (AUTO) 0 % (0-10); HEMATOCRIT 31 % (35-52); HEMOGLOBIN 10.3 g/dL (11.5-16.0); LYMPHOCYTES # (AUTO) 1.6 10^3/uL (1.0-4.0); LYMPHOCYTES % (AUTO) 13 % (12-44); MEAN CORPUSCULAR HEMOGLOBIN 31 pg (25-34); MEAN CORPUSCULAR HGB CONC 33 g/dL (32-36); MEAN CORPUSCULAR VOLUME 95 fL (80-99); MEAN PLATELET VOLUME 10.4 fL (9.0-12.2); MONOCYTES # (AUTO) 1.3 10^3/uL (0.0-1.0); MONOCYTES % (AUTO) 11 % (0-12); NEUTROPHILS # (AUTO) 8.9 10^3/uL (1.8-7.8); NEUTROPHILS % (AUTO) 75 % (42-75); PLATELET COUNT 200 10^3/uL (130-400); WHITE BLOOD COUNT 11.9 10^3/uL (4.3-11.0)
[2021-02-05 05:02] LABS: POTASSIUM 3.6 MMOL/L (3.6-5.0)
[2021-02-05 05:03] LABS: CALCIUM 7.8 MG/DL (8.5-10.1)
[2021-02-05 05:07] LABS: CREATININE SERUM 0.92 MG/DL (0.60-1.30); PHOSPHORUS 2.4 MG/DL (2.3-4.7)
[2021-02-05 05:10] LABS: MAGNESIUM 2.3 MG/DL (1.6-2.4)
[2021-02-05] MEDS: MAGNESIUM 1 GM/100 ML IVPB 100 ML IV SCH (05:24)
[2021-02-05] MEDS: POTASSIUM CL 10MEQ/50ML IVPB 50 ML IV SCH (05:24)
[2021-02-05] MEDS: KCL 20 MEQ TAB (K-DUR) PO SCH (05:24)
[2021-02-05] MEDS: ceFAZolin 2 GM IV Premixed 50 ML IV SCH ×3 (05:54→22:16)
[2021-02-05] MEDS: RT-ALBUTEROL SULF 2.5 MG/3 ML PRE-MIX VIAL INH SCH ×2 (07:32→21:00)
--- NOTE | 2021-02-05 08:29 | Cardiology Progress Note ---
Subjective Date Seen by Provider: Feb 05, 2021 Time Seen by Provider: 08:28 Subjective/Events-last exam Patient was seen at bedside, laying down comfortably, feeling better, breathing better. No chest pain. Review of Systems General: No Chills, No Night Sweats; Fatigue; No Malaise, No Appetite, No Other HEENT: No Head Aches, No Visual Changes, No Eye Pain, No Ear Pain, No Dysphasia, No Sinus Congestion, No Post Nasal Drip, No Sore Throat, No Other Pulmonary: No Dyspnea, No Cough, No Pleuritic Chest Pain, No Other Cardiovascular: No: Chest Pain, Palpitations, Orthopnea, Paroxysmal Noc. Dyspnea, Edema, Lt Headedness, Other Objective-Cardiology Exam Last Set of Vital Signs Vital Signs 02/03/21 02/05/21 02/05/21 02/05/21 02/05/21 20:00 06:00 07:00 07:33 07:56 Temp 36.8 Pulse 59 Resp 25 B/P (MAP) 143/69 (93) Pulse Ox 95 O2 Delivery Room Air O2 Flow Rate 2.00 FiO2 40 I&O Intake and Output 02/05/21 00:00 Intake Total 1450 ml Output Total 1575 ml Balance -125 ml Intake Oral 1250 ml IV Total 200 ml Output Urine Total 1575 ml General: Alert, Oriented X3, Cooperative HEENT: Atraumatic, PERRLA Neck: Supple, No JVD, No Thyromegaly Lungs: Clear to Auscultation, Normal Air Movement Heart: Regular Rate, Normal S1, Normal S2, No Murmurs, Rubs Abdomen: Normal Bowel Sounds, Soft, No Tenderness, No Hepatosplenomegaly, No Masses Extremities: No Clubbing, No Cyanosis, No Edema, Normal Pulses, No Tenderness/Swelling Skin: No Rashes, No Breakdown, No Significant Lesion Neuro: Normal Gait, Normal Speech, Strength at 5/5 X4 Ext, Normal Tone, Sensation Intact Psych/Mental Status: Mental Status NL, Mood NL Results Lab Laboratory Tests 02/05/21 04:36 A/P-Cardiology Admission Diagnosis Bradycardia Complete heart block Cardiac pacemaker Congestive heart failure, acute left ventricular systolic dysfunction, ischemic cardiomyopathy Assessment/Plan Bradycardia, complete heart block with left bundle branch block, status post dual chamber pacemaker implant, difficult procedure, difficulty achieving good positioning of the ventricular leads required multiple attempts and resulted in pericardial effusion and tamponade. Currently better. Continue to monitor closely Pericardial tamponade, secondary to pacemaker placement, status post pericardiocentesis and placement of pigtail in the pericardial space. Drainage about 350 mL, drainage has stopped at [address] scan of the chest showed small residual pericardial effusion, bilateral pleural effusion and pulmonary edema. She was given Lasix and had good response. Feeling better, laying down comfortably in bed. Continue to monitor closely and I will repeat 2D echo later today. Elevated troponin level, cardiomyopathy, probably ischemic, recommended cardiac catheterization. Cannot tolerate aggressive anticoagulation at this time. Patient expressed that she will think about it and get back with me, I recommended doing the procedure as soon as possible Hypertension, better controlled, monitor blood pressure Congestive heart failure, acute left ventricular systolic dysfunction ejection fraction 35%, unknown etiology, probably ischemic in nature. Had mild elevation in troponin, could be secondary to pericardial tamponade and the multiple attempt with the ventricular lead. Underlying coronary artery disease cannot be excluded, I discussed with the patient and her the need for ischemic work-up in the near future. At this point she cannot tolerate aggressive anticoagulation due to the pericardial effusion. We will continue monitoring closely Shortness of breath, congestive heart failure, acute left ventricular systolic dysfunction, probably ischemic in nature. Diabetes mellitus, followed and managed by primary care physician Hypothyroidism, maintained on thyroid replacement therapy. Allergy to penicillin and sulfa NIKOS PACE MD Feb 05, 2021 08:29
[2021-02-05] MEDS ORDERED: KCL 20 MEQ TAB (K-DUR) PO ONE (09:00)
[2021-02-05] MEDS ORDERED: NS IV 1000 ML 1,000 ML ONE (09:06)
[2021-02-05] MEDS ORDERED: HEParin (CATH LAB) 2,000 ML IV ONE (09:11)
[2021-02-05] MEDS ORDERED: LIDOCAINE 1% INJ 20 ML 20 ML VIAL ONE (09:11)
[2021-02-05] MEDS ORDERED: MIDAZOLAM 5 MG/5 ML (VERSED) VIAL ONE (09:24)
[2021-02-05] MEDS ORDERED: fentaNYL INJ 100 MCG/2 ML AMP ONE (09:24)
--- NOTE | 2021-02-05 09:41 | Conscious Sedation/ASA ---
Conscious Sedation Pre-Proced Time 09:41 ASA Score 3 For ASA 3 and 4: Consider anesthesia and medical clearance. Also, for patients with a history of failed moderate sedation consider anesthesia. Airway Lungs Heart ASA score ASA 1: a normal healthy patient ASA 2: a patient with a mild systemic disease (mid diabetes, controlled hypertension, obesity x ASA 3: a patient with a severe systemic disease that limits activity (angina, COPD, prior Myocardial infarction) ASA 4: a patient with an incapacitating disease that is a constant threat to life (CHF, renal failure) ASA 5: a moribund patient not expected to survive 24 hrs. (ruptured aneurysm) ASA 6: a declared brain- patient whose organs are being harvested. For emergent operations, add the letter E after the classification Mallampati Classification Grade 3 Sedation Plan Analgesia, Amnesia, Plan communicated to team members, Discussed options with patient/fam, Discussed risks with patient/fam The patient is an appropriate candidate to undergo the planned procedure, sedation, and anesthesia. The patient immediately re-assessed prior to indication. NIKOS PACE MD Feb 05, 2021 09:41
--- NOTE | 2021-02-05 10:38 | Cardiac Cath Report ---
Cardiac Cath Report Physician (s)/Service Desk Team Lead (s) Physician NIKOS PACE MD Pre-Procedure Diagnosis Pre-Procedure Diagnosis: Congestive heart failure Post-Procedure Note Procedure Start Date: Feb 05, 2021 Name of Procedure: Left heart catheterization Left ventriculogram Findings/Procedure Note PROCEDURE NOTE: 80-year-old lady admitted with complete heart block, had dual-chamber pacemaker, noted to have congestive heart failure and apical hypokinesia to akinesia. Had elevation in troponin, discussed the management plan recommended cardiac catheterization possible PTCA. After explaining the procedure to the patient, all pros and cons were explained, all questions were answered. The patient signed the consent and then she was placed on the cardiac catheterization laboratory. Groin was prepped SL fashion local anesthesia was used. Sheath placed in the right femoral artery. Scarlet right and left catheter were used to access the coronary system. JR was used to access the left ventricular cavity. Left ventriculogram was done At the end of the procedure the sheath was removed. Closure device was deployed FINDINGS: Hemodynamics LV 119/27, end-diastolic pressure of 27 Aorta 118/53 mean of 77 ANATOMY: Left Main is free of obstructive disease Left Anterior Descending has mild to moderate disease nonobstructive disease with slow flow Left Circumflex has diffuse ectasia with slow flow in the circumflex artery, large dominant artery Right Coronary Artery nondominant artery with slow flow LV Gram is dilated with apical akinesia, diffuse left ventricular hypokinesia, ejection fraction 35% CONCLUSION: 1. Coronary ectasia with slow flow and the circumflex artery, small vessel disease in the LAD and right coronary artery 2. Nonischemic cardiomyopathy with apical akinesia, ejection fraction 35%, probably Takotsubo cardiomyopathy DISCUSSION AND RECOMMENDATION: Continue with maximizing medical therapy Anesthesia Type: Conscious Sedation Estimated blood loss (mL): 25 ml Contrast Amount: 46 ml Total Radiation Dose: 518 mGy Post-Procedure Diagnosis Post-operative diagnosis: Congestive heart failure Complete heart block Coronary artery disease Hypertension NIKOS PACE MD Feb 05, 2021 10:38
[2021-02-05] MEDS ORDERED: NS IV 1000 ML 1,000 ML IV SCH (10:45)
[2021-02-05] MEDS ORDERED: PATIENT MAY USE OWN MEDS, ALL PO SCH (10:45)
[2021-02-05] MEDS: ASPIRIN 81 MG CHEW (CHILDREN'S ASA) PO SCH (10:59)
[2021-02-05] MEDS ORDERED: CRAN450T9 PO (11:42)
[2021-02-05] MEDS ORDERED: ASPI-1238 PO (11:42)
[2021-02-05] MEDS ORDERED: LEVO100T7 PO (11:42)
[2021-02-05] MEDS ORDERED: METF-865 PO (11:42)
[2021-02-05] MEDS ORDERED: CHOL10007 PO (11:42)
[2021-02-05] MEDS ORDERED: [UNRECOGNIZED DRUG - OTHER] PO (11:42)
[2021-02-05] MEDS ORDERED: CALC600T91 PO (11:42)
[2021-02-05] MEDS ORDERED: BALANCE OF NATURE PO (11:42)
--- NOTE | 2021-02-05 12:02 | Tele-ICU Progress Note ---
Subjective Date Seen by a Provider: Feb 05, 2021 Time Seen by a Provider: 12:02 Sepsis Event Evaluation Height, Weight, BMI Height: '" Weight: lbs. oz. kg; 28.76 BMI Method: Exam Exam Patient acknowledged, consented, and participated in this virtual visit which was conducted using real time audio/video Vital Signs Date Time Temp Pulse Resp B/P (MAP) Pulse Ox O2 Delivery O2 Flow Rate FiO2 02/05/21 11:56 36.6 02/05/21 09:30 58 18 153/70 (99) Room Air 02/05/21 09:15 60 17 164/71 (102) 92 Room Air 02/05/21 09:00 60 18 135/75 (103) 92 Room Air 02/05/21 08:45 60 23 138/81 (107) 92 Room Air 02/05/21 08:30 60 20 92 Room Air 02/05/21 08:15 60 16 152/82 (134) 94 Room Air 02/05/21 08:00 60 16 95 Room Air 02/05/21 07:56 36.8 02/05/21 07:45 60 15 149/79 (96) 92 Room Air 02/05/21 07:33 95 Room Air 2.00 02/05/21 07:30 60 27 93 Room Air 02/05/21 07:15 60 16 147/74 (98) 94 Room Air 02/05/21 07:00 59 02/05/21 07:00 60 18 143/68 (104) 93 Room Air 02/05/21 06:00 60 25 143/69 (93) 93 Room Air 02/05/21 05:59 Room Air 02/05/21 05:00 60 19 149/68 (95) 96 Nasal Cannula 2.00 02/05/21 04:00 37.0 02/05/21 04:00 60 21 128/61 (83) 97 Nasal Cannula 2.00 02/05/21 04:00 Nasal Cannula 2.00 02/05/21 03:00 59 20 129/63 (85) 95 Nasal Cannula 2.00 02/05/21 02:00 60 15 145/71 (95) 97 Nasal Cannula 2.00 02/05/21 01:00 60 02/05/21 01:00 60 20 138/67 (90) 96 Nasal Cannula 2.00 02/05/21 00:00 60 20 135/61 (85) 95 Nasal Cannula 2.00 02/05/21 00:00 37.0 02/04/21 23:42 Nasal Cannula 2.00 02/04/21 23:15 60 18 144/58 (86) 96 Nasal Cannula 2.00 02/04/21 22:44 Nasal Cannula 2.00 02/04/21 22:20 95 High Flow N/C 2.00 02/04/21 22:00 79 19 139/68 (91) 96 Room Air 02/04/21 21:00 61 17 150/67 (94) 96 Room Air 02/04/21 20:09 Room Air 02/04/21 20:00 64 18 143/67 (92) 93 Nasal Cannula 2.00 02/04/21 20:00 Nasal Cannula 2.00 02/04/21 19:37 37.4 02/04/21 19:00 75 26 131/79 (96) 94 Nasal Cannula 2.00 02/04/21 19:00 75 02/04/21 19:00 Nasal Cannula 2.00 02/04/21 18:00 70 23 131/79 (96) 96 Room Air 02/04/21 17:00 64 18 157/72 (100) 96 Room Air 02/04/21 16:00 36.7 02/04/21 16:00 64 22 145/96 (112) 97 Room Air 02/04/21 16:00 Room Air 02/04/21 15:00 65 23 100/67 (78) 90 Room Air 02/04/21 14:00 68 23 131/60 (92) 92 Room Air 02/04/21 13:50 Room Air 02/04/21 13:00 66 25 96/65 (67) 94 Nasal Cannula 1.00 02/04/21 12:44 60 I & O 02/05/21 07:00 Intake Total 1750 ml Output Total 1275 ml Balance 475 ml Height & Weight Height: '" Weight: lbs. oz. kg; 28.76 BMI Method: General Appearance: No Apparent Distress, Obese HEENT: PERRL/EOMI, Pharynx Normal Neck: Normal Inspection, Supple Respiratory: Lungs Clear, Normal Breath Sounds, No Respiratory Distress Cardiovascular: Regular Rate, Rhythm, No Edema, No Murmur Capillary Refill: Less Than 3 Seconds Extremity: Normal Inspection, Non Tender, No Pedal Edema Neurologic/Psychiatric: Alert, Oriented x3, No Motor/Sensory Deficits, Normal Mood/Affect Skin: Normal Color, Warm/Dry Lymphatic: No Adenopathy Results Lab Laboratory Tests 02/03/21 21:17 02/04/21 04:10 02/05/21 04:36 Assessment/Plan Assessment/Plan (Tele-ICU Physician , Progress Note ) Available chart/ vitals / labs / Images reviewed Video assessment done using teleICU camera, rest of exam as per RN Discussed with RN , EXAM PER RN Events overnight : pericardiocentesis tube is clogged FEBRILE 37 FiO2 - 2 l I/O = neg 200 Drips: Pressors: , hemodynamically stable Consultants: gisselle Hospital course: 02/03 - transfer from [facility]- heart block , pcemaker placement , tamponade -> drainage placed 02/04 - pericardiocentesis tube is clogged- removed 02/05 = card cath - no interventions A/P Bradycardia, complete heart block - s/p dual chamber pacemaker implant 02/03 -02/05 = card cath - no interventions Pericardial effusion and tamponade due to above - pericardiocentesis and drainage placement 02/04 - >- CT scan of the chest showed small residual pericardial effusion -ECHO pending - REMOVED tube 02/04 -ECHO 02/04 - no pericard effusion - as per cards CHF with bilateral pleural effusion and pulmonary edema. -EF 35 % - Lasix to cont as per cardiology FEVER + Leukocytosis - probably reactive, currently receiving Ancef - follow closely Elv LFT - suspected hepatic conjestion with CHF - to follow DM - ISS Anemia - mild , follow Lines : (Central Line Necessity Reviewed) Enriquez: OG: Nutrition: Analgesia: Anxiety/ delirium VTE Prophylaxis: scd Stress Ulcer Prophylaxis: po intake Plans in collaboration with bedside consultants and IM MDs. Discussed with RN to reach out if any questions or concerns A total of 31 minutes of critical care time was devoted to this patient today, required to treat and/or prevent further deterioration of critical care condition ( as above) . RACH AQUINO MD Feb 05, 2021 12:02
--- NOTE | 2021-02-05 14:33 | Progress Note - Hospitalist ---
Subjective HPI/CC On Admission Date Seen by Provider: Feb 05, 2021 Time Seen by Provider: 10:50 Gi Roberts is an 80 year old female who presented as a transfer from [facility] after presenting with shortness of breath. She denied chest pain. She was not having palpitations. She denies fevers and chills. She denies cough. She denies abdominal pain, nausea, vomiting, and diarrhea. She is fully vaccinated against COVID. She also received her flu vaccine. She has no history of CAD or heart failure. Subjective/Events-last exam She is feeling well. She just got back from heart cath. She is having some blee ding from her cath site and has a sandbag in place. She denies chest pain. She denies shortness of breath. Objective Exam Vital Signs Vital Signs Date Time Temp Pulse Resp B/P (MAP) Pulse Ox O2 Delivery O2 Flow Rate FiO2 02/05/21 11:56 36.6 02/05/21 09:30 58 18 153/70 (99) Room Air 02/05/21 09:15 92 02/05/21 07:33 2.00 02/03/21 20:00 40 Capillary Refill : Less Than 3 Seconds General Appearance: No Apparent Distress, Obese Respiratory: Lungs Clear, Normal Breath Sounds, No Respiratory Distress Cardiovascular: Regular Rate, Rhythm, No Edema, No Murmur Gastrointestinal: Normal Bowel Sounds, Non Tender, Soft Extremity: Normal Inspection, Non Tender, No Pedal Edema, Other (right groin with sandbag in place) Neurologic/Psychiatric: Alert, Oriented x3, No Motor/Sensory Deficits, Normal Mood/Affect Skin: Normal Color, Warm/Dry Results/Procedures Lab Laboratory Tests 02/05/21 04:36 Patient resulted labs reviewed. Imaging: Reviewed Imaging Report Assessment/Plan Assessment and Plan Assess & Plan/Chief Complaint New onset heart failure Acute heart failure with reduced ejection fraction Takotsubo cardiomyopathy Elevated troponin Complete heart block s/p pacemaker placement Cardiology following TeleICU following s/p pacemaker placement 02/03 Echo with EF 30-35% Left heart cath without significant CAD, no intervention required Revealed apical hypokinesis consistent with Takotsubo Continue oral Lasix HTN Continue current meds T2DM Sliding scale insulin DVT prophylaxis: SCDs Pericardial effusion with cardiac tamponade, resolved Diagnosis/Problems Diagnosis/Problems (1) New onset of congestive heart failure Status: Acute (2) Complete heart block Status: Acute (3) Elevated troponin Status: Acute (4) HTN (hypertension) Status: Chronic (5) T2DM (type 2 diabetes mellitus) Status: Chronic (6) Obesity Status: Chronic (7) Pericardial effusion with cardiac tamponade Status: Resolved Resolution Date/Time: 02/05/21 @ 14:33 (8) Takotsubo cardiomyopathy Status: Acute HERMINIO NICE MD Feb 05, 2021 14:33
[2021-02-05] MEDS: FUROSEMIDE 40 MG (LASIX) TAB PO SCH (14:44)
[2021-02-05] MEDS: LOSARTAN 50 MG (COZAAR) TAB PO SCH (14:44)
[2021-02-06] VITALS (9 sets, daily range): BP systolic 138–168; BP diastolic 65–92
[2021-02-06] MEDS: inSUlin ASPART (NovoLOG) 1 UNIT/0.01 ML (CHARGE PER UNIT) SC SCH ×2 (02:12→05:50)
[2021-02-06 04:56] LABS: BASOPHILS # (AUTO) 0.1 10^3/uL (0.0-0.1); BASOPHILS % (AUTO) 0 % (0-10); EOSINOPHILS # (AUTO) 0.1 10^3/uL (0.0-0.3); EOSINOPHILS % (AUTO) 1 % (0-10); HEMATOCRIT 31 % (35-52); LYMPHOCYTES # (AUTO) 1.3 10^3/uL (1.0-4.0); LYMPHOCYTES % (AUTO) 11 % (12-44); MEAN CORPUSCULAR HEMOGLOBIN 31 pg (25-34); MEAN CORPUSCULAR HGB CONC 33 g/dL (32-36); MEAN CORPUSCULAR VOLUME 96 fL (80-99); MEAN PLATELET VOLUME 10.4 fL (9.0-12.2); MONOCYTES # (AUTO) 1.2 10^3/uL (0.0-1.0); MONOCYTES % (AUTO) 10 % (0-12); NEUTROPHILS # (AUTO) 9.5 10^3/uL (1.8-7.8); NEUTROPHILS % (AUTO) 78 % (42-75); PLATELET COUNT 197 10^3/uL (130-400); WHITE BLOOD COUNT 12.1 10^3/uL (4.3-11.0)
[2021-02-06 05:06] LABS: CALCIUM 7.6 MG/DL (8.5-10.1)
[2021-02-06 05:11] LABS: CREATININE SERUM 0.74 MG/DL (0.60-1.30); PHOSPHORUS 1.8 MG/DL (2.3-4.7)
[2021-02-06 05:13] LABS: MAGNESIUM 2.6 MG/DL (1.6-2.4)
[2021-02-06] MEDS: POTASSIUM CL 10MEQ/50ML IVPB 50 ML IV SCH (05:49)
[2021-02-06] MEDS: MAGNESIUM 1 GM/100 ML IVPB 100 ML IV SCH (05:50)
[2021-02-06] MEDS: KCL 20 MEQ TAB (K-DUR) PO SCH (05:50)
[2021-02-06] MEDS: ceFAZolin 2 GM IV Premixed 50 ML IV SCH (06:19)
[2021-02-06] MEDS: LOSARTAN 50 MG (COZAAR) TAB PO SCH (08:28)
[2021-02-06] MEDS: FUROSEMIDE 40 MG (LASIX) TAB PO SCH (08:28)
[2021-02-06] MEDS: ASPIRIN 81 MG CHEW (CHILDREN'S ASA) PO SCH (08:28)
[2021-02-06] MEDS ORDERED: POT PHOS/NA PHOS (K-PHOS NEUTRAL) PO NR (08:45)
[2021-02-06] MEDS: RT-ALBUTEROL SULF 2.5 MG/3 ML PRE-MIX VIAL INH SCH (09:13)
[2021-02-06] MEDS ORDERED: CEFU500T63 PO (09:22)
[2021-02-06] MEDS ORDERED: POTA10TA PO (09:22)
[2021-02-06] MEDS ORDERED: FURO-125 PO (09:22)
[2021-02-06] MEDS ORDERED: CARV3.122 PO (09:22)
[2021-02-06] MEDS ORDERED: METF-865 PO (09:22)
--- NOTE | 2021-02-06 09:22 | Discharge Inst-Post CATH ---
Discharge Inst-CATH/EP Problems Reviewed?: Yes Post Cardiac Cath/EP D/C Inst Follow Up/Plan Hold Metformin for [address] Kenyon's office in 1 week <b>CARDIAC CATH/EP PROCEDURE DISCHARGE INSTRUCTIONS</b> ACTIVITY * Go Home directly and rest. * Limit activity of the leg (or wrist if it was used) for 7 days including aerobics, swimming, jogging, bicycling, etc. * Restrict stair-climbing for 7 days if possible, if not, climb up with your non-cath leg, then bring together on the same step. * Avoid lifting, pushing, pulling or excessive movement of the affected extremity for 7 days. * Customary sexual activity may be resumed after 2 days-use caution not to use a position that strains or causes pain to the affected extremity. * No driving for 24 hours. * NO SMOKING. * Avoid straining for bowel movements for 7 days. * Gentle walking on level ground is allowed. * Returning to work will depend on the type of procedure and the results. Your doctor will discuss this with you. CALL YOUR DOCTOR FOR ANY OF THE FOLLOWING: *If bleeding from the puncture site occurs- Apply gentle pressure to site with clean cloth and call your doctor or EMS. * If a knot or lump forms under the skin, increases in size, or causes pain. * If bruising appears to be worsening or moving further down your leg instead of disappearing. * Temperature above 101 F. CARE OF YOUR GROIN INCISION; * Bruising or purple discoloration of the skin near the puncture site is common. * You may shower only, no bathtub bathing for 5 days. Be careful to avoid slipping as your leg may feel stiff. * If a closure device was used on your femoral artery, please see the attached guide regarding care of the device and your leg. * Leave dressing on FOR 24 hours. CARE OF YOUR WRIST INCISION; * Bruising or purple discoloration of the skin near the puncture site is common. * You may shower. * DO NOT submerge wrist. * Leave dressing on FOR 24 hours. NIKOS KENYON MD Feb 06, 2021 09:22
--- NOTE | 2021-02-06 09:59 | Cardiology Progress Note ---
Subjective Date Seen by Provider: Feb 06, 2021 Time Seen by Provider: 09:57 Subjective/Events-last exam Patient was seen at bedside, laying down comfortably, feeling better. No new complaint. Review of Systems General: No Chills, No Night Sweats, No Fatigue, No Malaise, No Appetite, No Ot her HEENT: No Head Aches, No Visual Changes, No Eye Pain, No Ear Pain, No Dysp hasia, No Sinus Congestion, No Post Nasal Drip, No Sore Throat, No Other Pulmonary: No Dyspnea, No Cough, No Pleuritic Chest Pain, No Other Cardiovascular: No: Chest Pain, Palpitations, Orthopnea, Paroxysmal Noc. Dyspnea, Edema, Lt Headedness, Other Objective-Cardiology Exam Last Set of Vital Signs Vital Signs 02/03/21 02/05/21 02/06/21 02/06/21 02/06/21 20:00 07:33 08:00 08:30 09:13 Temp 36.5 Pulse 60 Resp 22 B/P (MAP) 155/74 (110) Pulse Ox 95 O2 Delivery Room Air O2 Flow Rate 2.00 FiO2 40 I&O Intake and Output 02/06/21 00:00 Intake Total 2930 ml Output Total 1400 ml Balance 1530 ml Intake Oral 1830 ml IV Total 1100 ml Output Urine Total 1400 ml General: Alert, Oriented X3, Cooperative HEENT: Atraumatic, PERRLA Neck: Supple, No JVD, No Thyromegaly Lungs: Clear to Auscultation, Normal Air Movement Heart: Regular Rate, Normal S1, Normal S2, No Murmurs, Rubs Abdomen: Normal Bowel Sounds, Soft, No Tenderness, No Hepatosplenomegaly, No Masses Extremities: No Clubbing, No Cyanosis, No Edema, Normal Pulses, No Tenderness/Swelling Skin: No Rashes, No Breakdown, No Significant Lesion Neuro: Normal Gait, Normal Speech, Strength at 5/5 X4 Ext, Normal Tone, Sensation Intact Psych/Mental Status: Mental Status NL, Mood NL Results Lab Laboratory Tests 02/06/21 04:36 A/P-Cardiology Admission Diagnosis Bradycardia Complete heart block Cardiac pacemaker Congestive heart failure, acute left ventricular systolic dysfunction, ischemic cardiomyopathy Assessment/Plan Bradycardia, complete heart block with left bundle branch block, status post du al chamber pacemaker implant, difficult procedure, difficulty achieving good positioning of the ventricular leads required multiple attempts and resulted in pericardial effusion and tamponade. Currently better. Pericardial tamponade, secondary to pacemaker placement, status post pericardiocentesis and placement of pigtail in the pericardial space. Drainage about 350 mL, drainage has stopped at [address] scan of the chest showed small residual pericardial effusion, bilateral pleural effusion and pulmonary edema. She was given Lasix and had good response. Feeling better, laying down comfortably in bed. Continue to monitor closely and I will repeat 2D echo later today. Elevated troponin level, type II myocardial infarction, ischemic cardiomyopathy Coronary artery disease, diffuse coronary ectasia with slow flow in the coronary system, small vessel disease nonobstructive disease, conservative management, continue with aspirin. Hypertension, better controlled, monitor blood pressure Congestive heart failure, acute left ventricular systolic dysfunction ejection fraction 35%, Nonischemic cardiomyopathy, Coronary angiogram was done on February 05, 2021 showing diffuse coronary ectasia with small vessel disease. Shortness of breath, congestive heart failure, acute left ventricular systolic dysfunction, probably ischemic in nature. Diabetes mellitus, followed and managed by primary care physician Hypothyroidism, maintained on thyroid replacement therapy. Allergy to penicillin and sulfa NIKOS PACE MD Feb 06, 2021 09:59
--- NOTE | 2021-02-06 19:07 | Discharge Summary ---
Discharge Summary Hospital Course Problems/Dx: (1) New onset of congestive heart failure Status: Acute (2) Complete heart block Status: Acute (3) Elevated troponin Status: Acute (4) HTN (hypertension) Status: Chronic (5) T2DM (type 2 diabetes mellitus) Status: Chronic (6) Obesity Status: Chronic (7) Pericardial effusion with cardiac tamponade Status: Resolved (8) Takotsubo cardiomyopathy Status: Acute Hospital Course Date of Admission: Feb 03, 2021 at 12:35 Admission Diagnosis : New onset heart failure Family Physician/Provider: MinnieLocal Physician Date of Discharge: 02/06/21 Discharge Diagnosis: Complete heart block, pacemaker placement, pericardial effusion with cardiac tamponade, HFrEF, Takotsubo cardiomyopathy Hospital Course: Gi Roberts is an 80 year old female who was admitted with new onset heart failure. Cardiology was consulted and assisted with her care. She was found to have complete heart block and underwent pacemaker placement. This was a difficult and complicated procedure. This was complicated by the development of a pericardial effusion and cardiac tamponade. She underwent a pericardiocentesis and pericardial drain placement. The drain was removed and her effusion did not return. She underwent a left heart catheterization which revealed no significant obstructive coronary artery disease. She was discharged home in stable condition. She will follow up with Dr. Kenyon for cardiology. She should follow up with her PCP in a week or two. Labs and Pending Lab Test: Laboratory Tests 02/06/21 01:06: Glucometer 144H 02/06/21 04:36: White Blood Count 12.1H, Red Blood Count 3.21L, Hemoglobin 10.0L, Hematocrit 31L , Mean Corpuscular Volume 96, Mean Corpuscular Hemoglobin 31, Mean Corpuscular Hemoglobin Concent 33, Red Cell Distribution Width 14.3, Platelet Count 197, Mean Platelet Volume 10.4, Immature Granulocyte % (Auto) 0, Neutrophils (%) (Auto) 78H, Lymphocytes (%) (Auto) 11L, Monocytes (%) (Auto) 10, Eosinophils (%) (Auto) 1, Basophils (%) (Auto) 0, Neutrophils # (Auto) 9.5H, Lymphocytes # (Auto) 1.3, Monocytes # (Auto) 1.2H, Eosinophils # (Auto) 0.1, Basophils # (Auto) 0.1, Immature Granulocyte # (Auto) 0.0, Sodium Level 139, Potassium Level 4.0, Chloride Level 106, Carbon Dioxide Level 24, Anion Gap 9, Blood Urea Nitrogen 23H, Creatinine 0.74, Estimat Glomerular Filtration Rate 75, BUN/Creat inine Ratio 31, Glucose Level 160H, Calcium Level 7.6L, Phosphorus Level 1.8L, Magnesium Level 2.6H Microbiology 02/03/21 MRSA Screen - Final, Complete MRSA not isolated Home Meds Active Cefuroxime (Cefuroxime Axetil) 500 Mg Tablet 500 Mg PO BID K-Tab ER (Potassium Chloride) 10 Meq Tablet.er 10 Meq PO DAILY Lasix (Furosemide) 20 Mg Tablet 20 Mg PO DAILY Carvedilol 3.125 Mg Tablet 3.125 Mg PO BID Metformin HCl ER (Metformin HCl) 500 Mg Tab.er.24h 500 Mg PO BIDAC Hold Metformin for 48-hour Reported Vitamin D3 (Cholecalciferol (Vitamin D3)) 25 Mcg Capsule 25 Mcg PO DAILY [Circulation Support] 1 Ea PO BID Cranberry (Cranberry Fruit) 450 Mg Tablet 450 Mg PO DAILY Calcium (Calcium Carbonate) 600 Mg Tablet 600 Mg PO DAILY [Balance Of Nature] 1 Ea PO TID Levothyroxine Sodium 100 Mcg Tablet 100 Mcg PO DAILY Aspirin EC (Aspirin) 81 Mg Tablet.dr 81 Mg PO HS Losartan Potassium 100 Mg Tablet 100 Mg PO 1800 Hydrochlorothiazide 50 Mg Tablet 50 Mg PO DAILY Assessment/Pt Instructions See instructions. Discharge Planning: <30 minutes discharge planning Discharge Instructions Discharge Diet: Low Sodium Diet Activity as Tolerated: Yes Discharge Physical Examination Vital Signs Vital Signs Date Time Temp Pulse Resp B/P (MAP) Pulse Ox O2 Delivery O2 Flow Rate FiO2 02/06/21 09:13 95 Room Air 02/06/21 08:30 60 22 02/06/21 08:00 36.5 02/06/21 08:00 155/74 (110) 02/05/21 07:33 2.00 02/03/21 20:00 40 General Appearance: No Apparent Distress, Obese Respiratory: Lungs Clear, Normal Breath Sounds, No Respiratory Distress Cardiovascular: Regular Rate, Rhythm, No Edema, No Murmur Gastrointestinal: Normal Bowel Sounds, Non Tender, Soft Extremity: Normal Inspection, Non Tender, No Pedal Edema Skin: Normal Color, Warm/Dry Neurologic/Psychiatric: Alert, Oriented x3, No Motor/Sensory Deficits, Normal Mood/Affect Allergies: Coded Allergies: Penicillins (Verified Allergy, Intermediate, rash, 02/03/21) Sulfa (Sulfonamide Antibiotics) (Verified Allergy, Intermediate, rash, 02/03/21) meperidine (Verified Allergy, Intermediate, vomit, 02/03/21) codeine (Verified Allergy, Mild, rash, 02/03/21) metoprolol (Verified Allergy, Unknown, dizziness, 02/03/21) morphine (Unverified Adverse Reaction, Mild, NAUSEA, 02/03/21) PER PATIENT REPORT Discharge Summary Date of Admission Feb 03, 2021 at 12:35 Date of Discharge Feb 06, 2021 at 10:00 Discharge Date: Feb 06, 2021 Discharge Time: 10:00 Admission Diagnosis New onset heart failure Consults/Procedures Consulations Cardiology Procedures Pacemaker placement, pericardiocentesis, pericardial drain, left heart catheterization Discharge Diagnosis New onset heart failure Acute heart failure with reduced ejection fraction Takotsubo cardiomyopathy Complete heart block s/p pacemaker placement Pericardial effusion with cardiac tamponade (1) New onset of congestive heart failure Status: Acute (2) Complete heart block Status: Acute (3) Elevated troponin Status: Acute (4) HTN (hypertension) Status: Chronic (5) T2DM (type 2 diabetes mellitus) Status: Chronic (6) Obesity Status: Chronic (7) Pericardial effusion with cardiac tamponade Status: Resolved (8) Takotsubo cardiomyopathy Status: Acute HERMINIO NICE MD Feb 06, 2021 19:06
== END 2021-02-06 10:00 | disposition home or self-care (01) | DRG 242 ==
LOC: ICU 12:35
PROVIDERS: ADMIT Internal Medicine; ATTEND Internal Medicine
PROC: 0JH606Z Insertion of Pacemaker, Dual Chamber into Chest Subcutaneous Tissue and Fascia, Open Approach (ICD-10-PCS; principal; 2021-02-03)
PROC: 02HK3JZ Insertion of Pacemaker Lead into Right Ventricle, Percutaneous Approach (ICD-10-PCS; 2021-02-03)
PROC: 02H60JZ Insertion of Pacemaker Lead into Right Atrium, Open Approach (ICD-10-PCS; 2021-02-03)
PROC: 02HV33Z Insertion of Infusion Device into Superior Vena Cava, Percutaneous Approach (ICD-10-PCS; 2021-02-03)
PROC: 5A09357 Assistance with Respiratory Ventilation, Less than 24 Consecutive Hours, Continuous Positive Airway Pressure (ICD-10-PCS; 2021-02-03)
PROC: 0W9D30Z Drainage of Pericardial Cavity with Drainage Device, Percutaneous Approach (ICD-10-PCS; 2021-02-04)
PROC: 4A023N7 Measurement of Cardiac Sampling and Pressure, Left Heart, Percutaneous Approach (ICD-10-PCS; 2021-02-05)
PROC: B2111ZZ Fluoroscopy of Multiple Coronary Arteries using Low Osmolar Contrast (ICD-10-PCS; 2021-02-05)
PROC: B2151ZZ Fluoroscopy of Left Heart using Low Osmolar Contrast (ICD-10-PCS; 2021-02-05)
DX: I11.0 Hypertensive heart disease with heart failure (principal); I50.21 Acute systolic (congestive) heart failure; I21.A1 Myocardial infarction type 2; I44.2 Atrioventricular block, complete; I31.4 Cardiac tamponade; I31.3 Pericardial effusion (noninflammatory); E78.5 Hyperlipidemia, unspecified; Z88.2 Allergy status to sulfonamides; Z88.5 Allergy status to narcotic agent; E11.9 Type 2 diabetes mellitus without complications; E66.9 Obesity, unspecified; D72.829 Elevated white blood cell count, unspecified; Z68.30 Body mass index [BMI] 30.0-30.9, adult; D64.9 Anemia, unspecified; I25.10 Atherosclerotic heart disease of native coronary artery without angina pectoris; I25.5 Ischemic cardiomyopathy; Z88.0 Allergy status to penicillin
CPT/HCPCS: 33208; 36415; 71045; 71250; 80048; 80053; 82947; 83735; 84100; 84443; 84484; 85007; 85025; 85027; 85610; 85730; 86850; 86900; 86901; 87081; 93005; 93306; 93458; 94640

== ENCOUNTER → 2021-03-16 | Outpatient (CLI) | payer MEDICARE ==
[~2021-03-16] MED LIST: AMLO-251 PO; ASPI-1238 PO; ASPI-999 PO; BALANCE OF NATURE PO; BENZ100C18 PO; CALC-654 PO; CALC600T91 PO; CARV3.122 PO; CEFU500T63 PO; CHOL10007 PO; CRAN450T9 PO; FURO-125 PO; HYDR50TA6 PO; LEVO100C4 PO; LEVO100T7 PO; LOSA100T57 PO; METF-478 PO; METF-865 PO; POTA10TA PO; [UNRECOGNIZED DRUG - OTHER] PO
--- NOTE | 2021-03-16 12:23 | Diagnostic Imaging Report ---
INDICATION: Pacemaker lead check Frontal chest obtained at 10:49 a.m. and compared to 02/04/2021. The heart is mildly enlarged. Pacemaker is unchanged. The pacemaker leads appear intact and no change in position compared to the prior study. There is no focal infiltrate or pneumothorax or pleural fluid. There is improved central vascular congestion compared to the prior study. IMPRESSION: Mild cardiomegaly with improving central vascular congestion compared to the prior study. No focal infiltrate or pleural fluid. Pacemaker is unchanged in position with intact leads. Dictated by: Dictated on workstation # [id number]
== END ==
LOC: RAD 10:19
PROVIDERS: ATTEND Internal Medicine Cardiovascular Disease
DX: T82.120A Displacement of cardiac electrode, initial encounter (principal); I51.7 Cardiomegaly; Z95.0 Presence of cardiac pacemaker
CPT/HCPCS: 71045

== ENCOUNTER → 2021-05-09 | Day surgery (SDC) | payer MEDICARE ==
[2021-05-09] VITALS (11 sets, daily range): BP systolic 95–175; BP diastolic 60–99
[~2021-05-09] VITALS: Ht 165.1 cm; Wt 75.8 kg
[~2021-05-09] MED LIST changes: +APIX5TAB PO; +CARV25TA PO; +FURO20TA4 PO; +LIDOCAINE 2% VISCOUS 15 ML UDC ONE; +LIDOCAINE 2% VISCOUS 15 ML UDC PO ONE; +MIDAZOLAM 2 MG/2 ML (VERSED) VIAL ONE; +NS IV 1000 ML 1,000 ML IV SCH; +NS IV 1000 ML 1,000 ML ONE; +POTA10TA37 PO; +proPOfol 200 MG/20 ML (DIPRIVAN) VIAL IV ONE
--- NOTE | 2021-05-09 09:16 | Diagnostic Imaging Report ---
INDICATION: Respiratory distress FINDINGS: The pacemaker device unremarkable. The lungs are clear. There is no failure, effusion or pneumothorax. IMPRESSION: No acute appearing abnormality Dictated by: Dictated on workstation # [id number]
[2021-05-09 09:21] LABS: HEMATOCRIT 42 % (35-52); HEMOGLOBIN 13.7 g/dL (11.5-16.0); MEAN CORPUSCULAR HEMOGLOBIN 31 pg (25-34); MEAN CORPUSCULAR HGB CONC 33 g/dL (32-36); MEAN CORPUSCULAR VOLUME 92 fL (80-99); MEAN PLATELET VOLUME 10.5 fL (9.0-12.2); PLATELET COUNT 250 10^3/uL (130-400); WHITE BLOOD COUNT 7.2 10^3/uL (4.3-11.0)
[2021-05-09 09:33] LABS: INR 1.3 (0.8-1.4); PROTHROMBIN TIME PATIENT 16.7 SEC (12.2-14.7)
[2021-05-09 09:40] LABS: ALBUMIN 4.4 GM/DL (3.2-4.5); BILIRUBIN,TOTAL 0.6 MG/DL (0.1-1.0); CALCIUM 9.5 MG/DL (8.5-10.1); CREATININE SERUM 0.93 MG/DL (0.60-1.30); POTASSIUM 4.4 MMOL/L (3.6-5.0); TOTAL PROTEIN 7.8 GM/DL (6.4-8.2)
--- NOTE | 2021-05-09 10:13 | Conscious Sedation/ASA ---
Conscious Sedation Pre-Proced Time 10:12 ASA Score 3 For ASA 3 and 4: Consider anesthesia and medical clearance. Also, for patients with a history of failed moderate sedation consider anesthesia. Airway Lungs Heart ASA score ASA 1: a normal healthy patient ASA 2: a patient with a mild systemic disease (mid diabetes, controlled hypertension, obesity x ASA 3: a patient with a severe systemic disease that limits activity (angina, COPD, prior Myocardial infarction) ASA 4: a patient with an incapacitating disease that is a constant threat to life (CHF, renal failure) ASA 5: a moribund patient not expected to survive 24 hrs. (ruptured aneurysm) ASA 6: a declared brain- patient whose organs are being harvested. For emergent operations, add the letter E after the classification Mallampati Classification Grade 3 Sedation Plan Analgesia, Amnesia, Plan communicated to team members, Discussed options with patient/fam, Discussed risks with patient/fam The patient is an appropriate candidate to undergo the planned procedure, sedation, and anesthesia. The patient immediately re-assessed prior to indication. NIKOS PACE MD May 09, 2021 10:13
--- NOTE | 2021-05-09 11:07 | Anesthesia-General Post-Op ---
MAC Patient Condition Mental Status/LOC: Same as Preop Cardiovascular: Satisfactory Nausea/Vomiting: Absent Respiratory: Satisfactory Pain: Controlled Complications: Absent Post Op Complications Complications None Follow Up Care/Instructions Patient Instructions None needed. Anesthesiology Discharge Order Discharge Order Patient is doing well, no complaints, stable vital signs, no apparent adverse anesthesia problems. No complications reported per nursing. MINNIE JOHANSEN CRNA May 09, 2021 11:07
--- NOTE | 2021-05-09 11:37 | Discharge Inst-Post CATH ---
Discharge Inst-CATH/EP Problems Reviewed?: Yes Post Cardiac Cath/EP D/C Inst Follow Up/Plan Follow-up appointment with Dr. Kenyon <b>CARDIAC CATH/EP PROCEDURE DISCHARGE INSTRUCTIONS</b> ACTIVITY * Go Home directly and rest. * Limit activity of the leg (or wrist if it was used) for 7 days including aerobics, swimming, jogging, bicycling, etc. * Restrict stair-climbing for 7 days if possible, if not, climb up with your non-cath leg, then bring together on the same step. * Avoid lifting, pushing, pulling or excessive movement of the affected extremity for 7 days. * Customary sexual activity may be resumed after 2 days-use caution not to use a position that strains or causes pain to the affected extremity. * No driving for 24 hours. * NO SMOKING. * Avoid straining for bowel movements for 7 days. * Gentle walking on level ground is allowed. * Returning to work will depend on the type of procedure and the results. Your doctor will discuss this with you. CALL YOUR DOCTOR FOR ANY OF THE FOLLOWING: *If bleeding from the puncture site occurs- Apply gentle pressure to site with clean cloth and call your doctor or EMS. * If a knot or lump forms under the skin, increases in size, or causes pain. * If bruising appears to be worsening or moving further down your leg instead of disappearing. * Temperature above 101 F. CARE OF YOUR GROIN INCISION; * Bruising or purple discoloration of the skin near the puncture site is common. * You may shower only, no bathtub bathing for 5 days. Be careful to avoid slipping as your leg may feel stiff. * If a closure device was used on your femoral artery, please see the attached guide regarding care of the device and your leg. * Leave dressing on FOR 24 hours. CARE OF YOUR WRIST INCISION; * Bruising or purple discoloration of the skin near the puncture site is common. * You may shower. * DO NOT submerge wrist. * Leave dressing on FOR 24 hours. NIKOS KENYON MD May 09, 2021 11:37
--- NOTE | 2021-05-09 11:39 | Cardiology Post Procedure Note ---
Post-Procedure Note Physician (s)/Material Handling Warehouse Supervisor (s) Physician NIKOS PACE MD Pre-Procedure Diagnosis Pre-Procedure Diagnosis: Atrial fibrillation Post-Procedure Note Procedure Start Date: May 09, 2021 Name of Procedure: Canceled attempt for HAYDEN Findings/Procedure Note Patient was scheduled for HAYDEN with electrical cardioversion. After explaining the procedure to the patient all pros and cons were explained all questions were answered, anesthesia record, conscious sedation achieved. HAYDEN probe was introduced to the bows to the esophagus then to the stomach. I was able to acquire life images but I was unable to rotate the camera to acquire full imaging. After multiple attempt I removed the HAYDEN probe. After removing the device and replugging the device and multiple attempt it seems that the HAYDEN probe has failed completely. Subsequently procedure was canceled. Patient regained consciousness without any complication Conclusion Canceled attempt for HAYDEN and cardioversion due to probe malfunction Anesthesia Type: Conscious Sedation Estimated blood loss (mL): 0 ml Contrast Amount: 0 ml Post-Procedure Diagnosis Post-operative diagnosis: Atrial fibrillation Cardiac pacemaker HTN NIKOS PACE MD May 09, 2021 11:39
== END ==
LOC: CATH 08:06
PROVIDERS: ATTEND Internal Medicine Cardiovascular Disease
DX: I48.0 Paroxysmal atrial fibrillation (principal); E66.9 Obesity, unspecified; I44.7 Left bundle-branch block, unspecified; I44.2 Atrioventricular block, complete; I25.10 Atherosclerotic heart disease of native coronary artery without angina pectoris; I11.0 Hypertensive heart disease with heart failure; I50.21 Acute systolic (congestive) heart failure; I42.8 Other cardiomyopathies; E11.9 Type 2 diabetes mellitus without complications; E03.9 Hypothyroidism, unspecified; Z88.0 Allergy status to penicillin; Z88.2 Allergy status to sulfonamides; Z95.0 Presence of cardiac pacemaker; Z79.82 Long term (current) use of aspirin; Z79.899 Other long term (current) drug therapy; Z68.27 Body mass index [BMI] 27.0-27.9, adult; Z79.01 Long term (current) use of anticoagulants; Z79.890 Hormone replacement therapy; Z53.9 Procedure and treatment not carried out, unspecified reason
CPT/HCPCS: 36415; 71045; 80053; 80061; 85027; 85610; 85730; 87081; 93005

== ENCOUNTER → 2021-06-27 | Outpatient (CLI) | payer MEDICARE ==
[~2021-06-27] MED LIST changes: -LIDOCAINE 2% VISCOUS 15 ML UDC ONE; -LIDOCAINE 2% VISCOUS 15 ML UDC PO ONE; -MIDAZOLAM 2 MG/2 ML (VERSED) VIAL ONE; -NS IV 1000 ML 1,000 ML IV SCH; -NS IV 1000 ML 1,000 ML ONE; -proPOfol 200 MG/20 ML (DIPRIVAN) VIAL IV ONE
== END ==
LOC: CARD 10:30
PROVIDERS: ATTEND Internal Medicine Cardiovascular Disease
DX: I11.9 Hypertensive heart disease without heart failure (principal); I08.3 Combined rheumatic disorders of mitral, aortic and tricuspid valves
CPT/HCPCS: 93306

== ENCOUNTER → 2022-06-25 | Outpatient (CLI) | payer MEDICARE, OTHER ==
[~2022-06-25] MED LIST changes: +POTA-177 PO; -POTA10TA37 PO
== END ==
LOC: CARD 14:00
PROVIDERS: ATTEND Internal Medicine Cardiovascular Disease
DX: I11.9 Hypertensive heart disease without heart failure (principal); I34.0 Nonrheumatic mitral (valve) insufficiency; I34.81 Nonrheumatic mitral (valve) annulus calcification; I35.0 Nonrheumatic aortic (valve) stenosis; I07.1 Rheumatic tricuspid insufficiency
CPT/HCPCS: 93306